=== PATIENT | male | born 1955 | race Caucasian/White ===

== ENCOUNTER 2021-06-01 12:48 | Day surgery (SDC) | payer MEDICARE, OTHER ==
[~2021-06-01] VITALS: Ht 188 cm; Wt 90.8 kg
[2021-06-01] MEDS ORDERED: ZYRTEC 10MG10 MG PO (13:31)
[2021-06-01 13:32] VITALS: BP 145/81; PULSE 63; TEMP 97.8
[2021-06-01 14:11] LABS: BASO # 0.1 K/mm3 (0.0-0.2); BASO % 0.8 % (0.0-2.0); EOS # 0.4 K/mm3 (0.0-0.7); EOS % 5.4 % (0.0-4.0); GRAN # 5.6 K/mm3 (1.4-6.5); GRAN % 70.4 % (42.2-75.2); HEMATOCRIT 43.1 % (42.0-52.0); HEMOGLOBIN 14.9 g/dl (13.5-18.0); LYMPH # 1.3 K/mm3 (1.2-3.4); LYMPH % 15.8 % (20.0-51.0); MEAN CELL VOLUME 84 fl (80.0-100.0); MEAN CORPUSCULAR HEMOGLOBIN 29 pg (27-31); MEAN CORPUSCULAR HGB CONC 35 g/dl (33.0-37.0); MEAN PLATELET VOLUME 10.6 fl (7.4-10.4); MONO # 0.6 K/mm3 (0.1-0.6); MONO % 7.5 % (1.7-9.3); PLATELET COUNT 147 K/mm3 (130-400); RED BLOOD COUNT 5.12 M/mm3 (4.20-5.60); REDCELL DISTRIBUTION WIDTH-CV 13.2 % (11.5-14.5)
[2021-06-01 15:19] LABS: ALBUMIN 3.7 gm/dL (3.4-4.8); BILIRUBIN,TOTAL 0.9 mg/dL (0.2-1.2); CALCIUM 8.6 mg/dL (8.4-10.2); CREATININE, serum 0.87 mg/dL (0.72-1.25); POTASSIUM 4.1 mmol/L (3.5-4.5); TOTAL PROTEIN 6.1 gm/dL (6.2-8.1)
[2021-06-01] MEDS ORDERED: NORCO 325 MG-51 TAB PO (15:58)
[2021-06-01 18:15] VITALS: BP 143/74; PULSE 57; TEMP 98.5
[2021-06-01 18:30] VITALS: BP 124/77; PULSE 64
[2021-06-01 18:40] VITALS: BP 127/71; PULSE 65
--- NOTE | 2021-06-01 18:54 | NUR ---
1749 Report received from Maki at bedside in PACU. 1752 Pt brought from PACU via cart and this RN assist to [facility]. Pt desires to use restroom upon return. Pt ambulates with this RN to restroom without complication. Pt alert and oriented. Pt's present in room. This RN stays in restroom with pt. 1813 Pt finished using restroom and ambulates back to [facility] with this RN assist. 1815 Monitors on and alarms set. Call light within reach. Pt requests grape juice and applesauce. Pt denies nausea. Pt states his pain is at a 5 out of 10, and has been since PACU. He would like a pain pill before going home. 1820 Pt taking food and drink well. No complications noted. 1830 [place] 5 mg given to pt. 1835 Discharge instructions given to pt and . All questions answered to their satisfaction. Handed to pt are a thank you card and discharge information. 1854 Pt transferred out of the hospital via wheelchair and this RN assist, to private vehicle driven by pt's .
== END 2021-06-01 18:54 | disposition home or self-care (01) ==
LOC: SDCO 12:48
PROVIDERS: Surgery
DX: K40.91 Unilateral inguinal hernia, without obstruction or gangrene, recurrent (principal); Z87.891 Personal history of nicotine dependence; Z86.16 Personal history of COVID-19
CPT/HCPCS: C1781; J0330; J0690; J1100; J1170; J1885; J2405; J2704; J3010; J7120